=== PATIENT | male | born 1980 | race Caucasian/White ===

== ENCOUNTER 2017-09-23 09:32 | Emergency (ER) | payer OTHER ==
[~2017-09-23] VITALS: Ht 177.8 cm; Wt 92.3 kg
[~2017-09-23 09:32] MED LIST: NO HOME MEDICATIONS
[2017-09-23 09:47] VITALS: BP 149/87; TEMP 98
[2017-09-23] MEDS ORDERED: CLARITIN 1010 MG/TAB PO (09:49)
[2017-09-23] MEDS ORDERED: ZYRTEC 10MG10 MG PO (09:49)
[2017-09-23] MEDS ORDERED: NASONEX SPRAY17 GM NS (09:49)
[2017-09-23 12:02] LABS: BASO % 0.8 % (0.0-2.0); EOS # 0.1 (0.0-0.7); EOS % 1.1 % (0-4.0); GRAN # 2.8 (1.4-6.5); GRAN % 52.6 % (42.2-75.2); HEMOGLOBIN 15.7 g/dl (13.5-18.0); LYMPH % 37.5 % (20.0-51.0); MEAN CELL VOLUME 85 fl (80.0-100.0); MEAN CORPUSCULAR HEMOGLOBIN 29 pg (27.0-31.0); MEAN CORPUSCULAR HGB CONC 34 g/dl (33.0-37.0); MEAN PLATELET VOLUME 9.2 fl (7.4-10.4); MONO # 0.4 (0.1-0.6); MONO % 7.2 % (1.7-9.3); PLATELET COUNT 255 K/mm3 (130-400); RED BLOOD COUNT 5.41 M/mm3 (4.20-5.60); REDCELL DISTRIBUTION WIDTH-CV 12.8 % (11.5-14.5)
[2017-09-23 12:05] LABS: ALANINE AMINOTRANSFERASE 35 U/L (21-72); ALBUMIN 4.2 gm/dL (3.5-5.0); ALKALINE PHOSPHATASE 73 U/L (50-136); ANION GAP 14 mmol/L (7-16); AST,SGOT 30 U/L (15-37); BILIRUBIN,TOTAL 0.8 mg/dL (0.0-1.0); BLOOD UREA NITROGEN 10 mg/dL (9-20); CALCIUM 9.3 mg/dL (8.4-10.2); CARBON DIOXIDE 25 mmol/L (22-30); CHLORIDE 104 mmol/L (98-107); CREATININE, serum 0.86 mg/dL (0.66-1.25); GLUCOSE 100 mg/dL (74-106); LIPASE 99 U/L (23-300); POTASSIUM 4.5 mmol/L (3.4-5.0); SODIUM 142 mmol/L (137-145); TOTAL PROTEIN 7.6 gm/dL (6.4-8.2)
[2017-09-23 12:17] LABS: TROPONIN-I < 0.012 ng/mL (0.000-0.034)
[2017-09-23] MEDS ORDERED: FLEXERIL 1010 MG/TAB PO (12:50)
[2017-09-23 13:01] VITALS: PULSE 69
== END 2017-09-23 13:03 | disposition home or self-care (01) ==
LOC: COL.ER 09:32
PROVIDERS: Physician Assistant
DX: M62.838 Other muscle spasm (principal); Z79.51 Long term (current) use of inhaled steroids